=== PATIENT | male | born 1960 | race Two or more races ===

== ENCOUNTER 2017-07-21 09:16 | Day surgery (SDC) | payer OTHER ==
[2017-07-21] MEDS ORDERED: LACTATED RINGERS 1,000 ML IV ONE ×2 (09:57→11:10)
[2017-07-21] MEDS ORDERED: fentaNYL 100 MCG/2 ML VIAL IVP ONE (10:42)
[2017-07-21] MEDS ORDERED: MIDAZOLAM 2 MG/2 ML VIAL IVP ONE (10:42)
--- NOTE | 2017-07-21 11:27 | PROCEDURE REPORT ---
DATE OF SERVICE: 07/21/2017 Physician: Ray Minor MD PROCEDURE PERFORMED: Colonoscopy. ENDOSCOPIST: Ray Minor MD PRIMARY CARE: [facility]. INDICATION: Screening. PREMEDICATIONS 1. Fentanyl 150 mcg. 2. Versed 4 mg IV titration. TOTAL SEDATION TIME: Twenty minutes. After informed consent was obtained, the patient was placed in left lateral decubitus position. Video colonoscope was introduced into the rectum, slowly advanced to the cecum. On slow withdrawal, mucosa was carefully examined. Scope was removed. The patient tolerated the procedure well. Preparation was good. BLOOD LOSS: None. COMPLICATIONS: None. FINDINGS 1. Normal colonoscopy to cecum. 2. Moderate internal hemorrhoids. The patient will need followup colonoscopy in 10 years. cc: [facility], TD: 07/21/2017 11:26
[2017-07-21 11:45] VITALS: BP 128/62
== END 2017-07-21 09:17 | disposition home or self-care (01) ==
LOC: SDS 09:16
PROVIDERS: ATTEND Internal Medicine Gastroenterology
PROC: 0DJD8ZZ Inspection of Lower Intestinal Tract, Via Natural or Artificial Opening Endoscopic (ICD-10-PCS; principal; 2017-07-21 10:30)
DX: Z12.11 Encounter for screening for malignant neoplasm of colon (principal); K64.8 Other hemorrhoids
CPT/HCPCS: 45378; J7120

== ENCOUNTER 2018-10-07 23:46 | Emergency (ER) | payer OTHER ==
--- NOTE | 2018-10-07 23:53 | ED Physician Documentation ---
PD HPI ABD PAIN - Stated complaint Stated Complaint: ABD PX - Chief complaint Chief Complaint: Abd Pain - History obtained from History obtained from: Patient - History of Present Illness Timing - onset: How many days ago (8) Timing - details: Abrupt onset, Intermittant Pain level now: 4 Quality: Pain Location: RUQ Radiation: Right flank Improved by: Other (no ameliorating factors) Worsened by: Eating Associated symptoms: No: Fever, Nausea, Vomiting, Diarrhea, Constipation Recently seen: Clinic (evaluated by PMD 3 days ago, advised to take zantac) Review of Systems Constitutional: denies: Fever, Chills, Sweats Cardiac: reports: Reviewed and negative Respiratory: reports: Reviewed and negative GI: reports: Abdominal Pain. denies: Nausea, Vomiting, Constipation, Diarrhea : denies: Dysuria, Frequency Skin: denies: Rash Musculoskeletal: reports: Reviewed and negative PD PAST MEDICAL HISTORY - Past Medical History Cardiovascular: None Respiratory: Sleep apnea, CPAP use Endocrine/Autoimmune: None GI: GERD, Hemorrhoids : None HEENT: Chronic vision loss, Chronic sinusitis Psych: Depression, Anxiety Musculoskeletal: None Derm: None - Past Surgical History General: Cholecystectomy, Colonoscopy, EGD - Present Medications Home Medications: Ambulatory Orders Medication Instructions Recorded Confirmed Gabapentin [Neurontin] 600 mg PO DAILY 07/21/17 10/08/18 hydrOXYzine HCl [Hydroxyzine HCl] 10 mg PO DAILY 07/21/17 10/08/18 Dextroamphetamine/Amphetamine 30 mg PO DAILY 10/08/18 10/08/18 [Adderall Xr 30 mg Capsule] - Allergies Allergies/Adverse Reactions: Allergies Allergy/AdvReac Type Severity Reaction Status Date / Time bupropion [From Wellbutrin] Allergy Anxiety Verified 10/08/18 00:12 Penicillins Allergy Rash Verified 10/07/18 23:53 PD ED PE NORMAL - Vitals Vital signs reviewed: Yes - General General: Alert and oriented X 3, No acute distress, Well developed/nourished - Cardiac Cardiac: RRR, No murmur - Respiratory Respiratory: No respiratory distress, Clear bilaterally - Abdomen Abdomen: Normal bowel sounds, Soft, Non tender, Non distended - Back Back: No CVA TTP - Derm Derm: Normal color, Warm and dry, No rash Results - Vitals Vitals: Vital Signs - 24 hr 10/07/18 10/08/18 10/08/18 23:49 01:47 02:45 Temperature 36.5 C 36.0 C L Heart Rate 74 64 70 Respiratory 16 15 15 Rate Blood Pressure 115/73 108/79 113/86 H O2 Saturation 98 100 100 Oxygen O2 Source Room air - Labs Labs: Laboratory Tests 10/08/18 10/08/18 10/08/18 00:03 00:17 00:17 WBC 7.9 RBC 4.36 L Hgb 13.0 L Hct 37.5 L MCV 86.0 MCH 29.9 MCHC 34.7 RDW 13.2 Plt Count 264 MPV 7.7 Neut # (Auto) 5.3 Lymph # (Auto) 1.9 [place] # (Auto) 0.5 Eos # (Auto) 0.1 Baso # (Auto) 0.1 Absolute Nucleated RBC 0.00 Nucleated RBC % 0.1 Sodium 138 Potassium 3.5 Chloride 106 Carbon Dioxide 25 Anion Gap 7.0 BUN 15 Creatinine 1.0 Estimated GFR (MDRD) 77 L Glucose 106 H Calcium 8.5 Total Bilirubin 0.5 AST 28 ALT 20 Alkaline Phosphatase 49 Total Protein 7.2 Albumin 3.9 Globulin 3.3 Albumin/Globulin Ratio 1.2 Lipase 52 H Urine Color YELLOW Urine Clarity CLEAR Urine pH 7.5 Ur Specific [place] 1.010 Urine Protein NEGATIVE Urine Glucose (UA) NEGATIVE Urine Ketones NEGATIVE Urine Occult Blood NEGATIVE Urine Nitrite NEGATIVE Urine Bilirubin NEGATIVE Urine Urobilinogen 0.2 (NORMAL) Ur Leukocyte Esterase NEGATIVE Ur Microscopic Review NOT INDICATED Urine Culture Comments NOT INDICATED - Rads (name of study) CT A/P Radiology: Prelim report reviewed, See rad report PD MEDICAL DECISION MAKING - ED course Complexity details: reviewed results, re-evaluated patient, considered differential, d/w patient Departure - Departure Disposition: 01 Home, Self Care Clinical Impression: Abdominal pain Condition: Good Instructions: ED Abdominal Pain Unkn Cause Follow-Up: STEPHANIE MILLAN MD [Primary Care Provider] - (Call to arrange for next available appointment) Discharge Date/Time: 10/08/18 02:50
[2018-10-08 00:13] LABS: BILIRUBIN,URINE NEGATIVE (NEGATIVE); GLUCOSE, URINE (UA) NEGATIVE (NEGATIVE); KETONES,URINE (UA) NEGATIVE (NEGATIVE); LEUKOCYTE ESTERASE, URINE NEGATIVE (NEGATIVE); NITRITE,URINE NEGATIVE (NEGATIVE); OCCULT BLOOD,URINE NEGATIVE (NEGATIVE); PH,URINE 7.5 PH (5.0-7.5); PROTEIN,URINE NEGATIVE (NEGATIVE); UROBILINOGEN,URINE 0.2 (NORMAL) E.U./dL (NORMAL)
[2018-10-08 00:14] LABS: CLARITY,URINE CLEAR (CLEAR)
[2018-10-08 00:36] LABS: BASOPHILS # (AUTO) 0.1 10^3/uL (0.0-0.1); BASOPHILS % (AUTO) 0.9 %; EOSINOPHILS # (AUTO) 0.1 10^3/uL (0.0-0.7); EOSINOPHILS % (AUTO) 1.7 %; LYMPHOCYTES # (AUTO) 1.9 10^3/uL (1.5-3.5); MEAN CORPUSCULAR HEMOGLOBIN 29.9 pg (27.0-31.0); MEAN CORPUSCULAR HGB CONC 34.7 g/dL (32.0-36.0); MEAN PLATELET VOLUME 7.7 fL (7.4-11.4); MONOCYTES # (AUTO) 0.5 10^3/uL (0.0-1.0); MONOCYTES % (AUTO) 6.3 %; NEUTROPHILS # (AUTO) 5.3 10^3/uL (1.5-6.6); NEUTROPHILS % (AUTO) 67.1 %; PLT - PLATELET COUNT 264 10^3/uL (130-450); RED BLOOD COUNT 4.36 10^6/uL (4.70-6.10); RED CELL DISTRIBUTION WIDTH 13.2 % (12.0-15.0); WHITE BLOOD COUNT 7.9 x10^3/uL (4.8-10.8)
[2018-10-08 00:46] LABS: ALBUMIN 3.9 g/dL (3.2-5.5); ALBUMIN/GLOBULIN RATIO 1.2 (1.0-2.2); BILIRUBIN,TOTAL 0.5 mg/dL (0.2-1.0); CALCIUM 8.5 mg/dL (8.5-10.3); TOTAL PROTEIN 7.2 g/dL (6.7-8.2)
[2018-10-08] MEDS ORDERED: IOVERSOL 320 100 ML VIAL IVP ONE ×2 (00:53→01:20)
--- NOTE | 2018-10-08 01:28 | CT Report ---
Reason: right abd. pain Procedure Date: 10/08/2018 Accession Number: [id number] / [id number] Procedure: CT - Abdomen/Pelvis W CPT Code: FULL RESULT: EXAM: CT ABDOMEN AND PELVIS EXAM DATE: 10/08/2018 01:18 AM. CLINICAL HISTORY: Right abd. pain. COMPARISONS: None. TECHNIQUE: Routine helical CT imaging was performed through the abdomen and pelvis. IV contrast: 100 ML OPTIRAY 320. Enteric contrast: No. Reconstructions: Coronal and sagittal. In accordance with CT protocol optimization, one or more of the following dose reduction techniques were utilized for this exam: automated exposure control, adjustment of mA and/or KV based on patient size, or use of iterative reconstructive technique. FINDINGS: Lung Bases: Unremarkable. Liver: Normal. No masses. Gallbladder/Bile Ducts: Resected Spleen: Normal. Pancreas: Normal. Adrenal Glands: Normal. Kidneys: Normal. No masses or hydronephrosis. Peritoneal Cavity/Bowel: Normal. No free fluid, free air or adenopathy. No masses or acute inflammatory process. The appendix is well visualized and normal. The cecum is on its own mesentery. There is a moderate amount of stool within the colon. There are no inflammatory changes. Pelvic Organs: Normal. The bladder and visualized pelvic organs are within normal limits. Vasculature: No aneurysms or other significant abnormality. Bones: No significant abnormality. Other: None. IMPRESSION: 1. Prior cholecystectomy. 2. Normal-appearing appendix. 3. Moderate amount of stool throughout the colon. No inflammatory changes. RADIA
[2018-10-08] MEDS ORDERED: KETOROLAC 30 MG/ML VIAL IVP STA (02:20)
[2018-10-08 02:54] VITALS: BP 113/86
== END 2018-10-08 02:50 | disposition home or self-care (01) ==
LOC: ED 23:46
DX: R10.11 Right upper quadrant pain (principal); K21.9 Gastro-esophageal reflux disease without esophagitis
CPT/HCPCS: 36415; 74177; 80053; 81003; 83690; 85025; 96374; 99283; 99284; Q9967; 81001; 87086

== ENCOUNTER 2022-06-29 10:21 | Emergency (ER) | payer OTHER ==
[2022-06-29 10:56] LABS: MUDS CUTOFF CONCENTRATIONS CUTOFF CONC BELOW:
[2022-06-29 11:02] LABS: BILIRUBIN,URINE NEGATIVE (NEGATIVE); GLUCOSE, URINE (UA) NEGATIVE (NEGATIVE); KETONES,URINE (UA) NEGATIVE (NEGATIVE); LEUKOCYTE ESTERASE, URINE NEGATIVE (NEGATIVE); NITRITE,URINE NEGATIVE (NEGATIVE); OCCULT BLOOD,URINE NEGATIVE (NEGATIVE); PH,URINE 6.5 PH (5.0-7.5); PROTEIN,URINE NEGATIVE (NEGATIVE); UROBILINOGEN,URINE 0.2 (NORMAL) E.U./dL (NORMAL)
[2022-06-29 11:04] LABS: CLARITY,URINE CLEAR (CLEAR)
[2022-06-29 11:07] LABS: BASOPHILS # (AUTO) 0.1 10^3/uL (0.0-0.1); BASOPHILS % (AUTO) 1.1 %; EOSINOPHILS % (AUTO) 0.7 %; HCT - HEMATOCRIT 39.5 % (42.0-52.0); HGB - HEMOGLOBIN 13.4 g/dL (14.0-18.0); LYMPHOCYTES # (AUTO) 0.9 10^3/uL (1.5-3.5); LYMPHOCYTES % (AUTO) 19.6 %; MEAN CORPUSCULAR HEMOGLOBIN 29.9 pg (27.0-31.0); MEAN CORPUSCULAR HGB CONC 33.9 g/dL (32.0-36.0); MEAN CORPUSCULAR VOLUME 88.2 fL (80.0-94.0); MEAN PLATELET VOLUME 9.4 fL (7.4-11.4); MONOCYTES # (AUTO) 0.2 10^3/uL (0.0-1.0); MONOCYTES % (AUTO) 4.9 %; NEUTROPHILS # (AUTO) 3.3 10^3/uL (1.5-6.6); NEUTROPHILS % (AUTO) 73.5 %; PLT - PLATELET COUNT 264 10^3/uL (130-450); RED BLOOD COUNT 4.48 10^6/uL (4.70-6.10); RED CELL DISTRIBUTION WIDTH 13.4 % (12.0-15.0); WHITE BLOOD COUNT 4.5 x10^3/uL (4.8-10.8)
[2022-06-29 11:14] LABS: AMPHETAMINE SCREEN,URINE POSITIVE (NEGATIVE); BARBITURATE SCREEN,UR NEGATIVE (NEGATIVE); BENZODIAZEPINES SCREEN, URINE NEGATIVE (NEGATIVE); COCAINE SCREEN URINE NEGATIVE (NEGATIVE); METHADONE SCREEN, URINE NEGATIVE (NEGATIVE); METHAMPHETAMINES SCREEN, URINE NEGATIVE (NEGATIVE); OPIATE SCREEN, URINE NEGATIVE (NEGATIVE); OXYCODONE SCREEN, URINE NEGATIVE (NEGATIVE); PROPOXYPHENE SCREEN, URINE NEGATIVE (NEGATIVE); THC CANNABINOID SCREEN, URINE NEGATIVE (NEGATIVE); TRICYCLIC ANTIDEPRESSANT,URINE NEGATIVE (NEGATIVE)
--- NOTE | 2022-06-29 11:16 | ED Physician Documentation ---
PD HPI MHE - Stated complaint Stated Complaint: SI - Chief complaint Chief Complaint: MHE - History obtained from History obtained from: Patient - History of Present Illness Primary symptom: Suicidal ideation, Depression. No: Suicide attempt Timing - onset: How many weeks ago (The patient states he does have history of depression and has been feeling this worse the last week or 2. No particular [place] new precipitants. He has been having suicidal ideation and this has been more in the forefront last 4- 5 days.) Contributing factors: No: Substance abuse - ETOH, Substance abuse - drugs, Off meds Similar symptoms before: Diagnosis (He does have history of depression and has been on antidepressant medications and does receive counseling. He has not been hospitalized previously. No prior suicide attempts.) Recently seen: Clinic (He did speak with his counselor and primary care last week. They suggested coming to the ER if needed if he felt worse. He was feeling worse today in particular. He had felt somewhat worse over the weekend but states he had to get his daughters to various places and had to do driving for them.) Review of Systems Constitutional: denies: Fever Nose: denies: Rhinorrhea / runny nose, Congestion Throat: denies: Sore throat Cardiac: denies: Chest pain / pressure Respiratory: denies: Dyspnea, Cough GI: denies: Abdominal Pain, Nausea, Vomiting, Diarrhea Neurologic: denies: Generalized weakness Psychiatric: reports: Depressed, Suicidal (ideation with plan of cutting wrists, but no attempts nor progression toward it.) Immunocompromised: denies: Immunocompromised PD PAST MEDICAL HISTORY - Past Medical History Cardiovascular: None Respiratory: Sleep apnea, CPAP use Neuro: Other Endocrine/Autoimmune: None GI: GERD, Hemorrhoids : None HEENT: Chronic vision loss, Chronic sinusitis Psych: Depression, Anxiety Musculoskeletal: None Derm: None - Past Surgical History Past Surgical History: Yes General: Cholecystectomy, Colonoscopy, EGD - Present Medications Home Medications: Ambulatory Orders Medication Instructions Recorded Confirmed Gabapentin [Neurontin] 600 mg PO DAILY 07/21/17 10/08/18 hydrOXYzine HCL [Hydroxyzine HCl] 10 mg PO DAILY 07/21/17 10/08/18 Dextroamphetamine/Amphetamine 30 mg PO DAILY 10/08/18 10/08/18 [Adderall Xr 30 mg Capsule] - Allergies Allergies/Adverse Reactions: Allergies Allergy/AdvReac Type Severity Reaction Status Date / Time bupropion [From Wellbutrin] Allergy Anxiety Verified 06/29/22 10:36 Penicillins Allergy Rash Verified 06/29/22 10:36 - Social History Does the pt smoke?: No Smoking Status: Never smoker Does the pt drink ETOH?: Yes Does the pt have substance abuse?: No - Immunizations Immunizations are current?: Yes - POLST Patient has POLST: No PD ED PE NORMAL - Vitals Vital signs reviewed: Yes - General General: Alert and oriented X 3, No acute distress, Well developed/nourished - Cardiac Cardiac: RRR, No murmur - Respiratory Respiratory: Clear bilaterally - Abdomen Abdomen: Non tender - Derm Derm: Normal color, Warm and dry - Neuro Neuro: Alert and oriented X 3, No motor deficit, Normal speech Eye Opening: Spontaneous Motor: Obeys Commands Verbal: Oriented GCS Score: 15 - Psych Psych: No: Normal affect (somewhat flat but pleasant and cooperative. ) Results - Vitals Vitals: Vital Signs - 24 hr 06/29/22 10:28 Temperature 36.4 C L Heart Rate 95 Respiratory 20 Rate Blood Pressure 144/95 H O2 Saturation 96 Oxygen O2 Source Room air - EKG (time done) 12:07 Rate: Rate (enter#) (84) Rhythm: NSR [place]: Normal Intervals: Normal MT QRS: Normal Ischemia: Normal ST segments. No: ST elevation c/w ischemia, ST depression Compare to prior EKG: Old EKG unavailable Computer interpretation: Agree with computer - Labs Labs: Laboratory Tests 06/29/22 06/29/22 06/29/22 10:48 11:00 11:00 WBC 4.5 L RBC 4.48 L Hgb 13.4 L Hct 39.5 L MCV 88.2 MCH 29.9 MCHC 33.9 RDW 13.4 Plt Count 264 MPV 9.4 Neut # (Auto) 3.3 Lymph # (Auto) 0.9 L [place] # (Auto) 0.2 Eos # (Auto) 0.0 Baso # (Auto) 0.1 Absolute Nucleated RBC 0.00 Nucleated RBC % 0.0 Sodium 138 Potassium 3.9 Chloride 103 Carbon Dioxide 25 Anion Gap 10.0 BUN 11 Creatinine 0.9 Estimated GFR (MDRD) 86 L Glucose 117 H Calcium 8.7 Total Bilirubin 0.4 AST 26 ALT 24 Alkaline Phosphatase 44 Total Protein 7.4 Albumin 4.2 Globulin 3.2 Albumin/Globulin Ratio 1.3 Lipase 40 TSH Urine Color LIGHT YELLOW Urine Clarity CLEAR Urine pH 6.5 Ur Specific [place] <=1.005 Urine Protein NEGATIVE Urine Glucose (UA) NEGATIVE Urine Ketones NEGATIVE Urine Occult Blood NEGATIVE Urine Nitrite NEGATIVE Urine Bilirubin NEGATIVE Urine Urobilinogen 0.2 (NORMAL) Ur Leukocyte Esterase NEGATIVE Ur Microscopic Review NOT INDICATED Urine Culture Comments NOT INDICATED Salicylates < 6.0 Urine Opiates Screen NEGATIVE Ur Oxycodone Screen NEGATIVE Urine Methadone Screen NEGATIVE Ur Propoxyphene Screen NEGATIVE Acetaminophen < 10 L Ur Barbiturates Screen NEGATIVE Ur Tricyclics Screen NEGATIVE Ur Phencyclidine Scrn NEGATIVE Ur Amphetamine Screen POSITIVE H U Methamphetamines Scrn NEGATIVE U Benzodiazepines Scrn NEGATIVE Urine Cocaine Screen NEGATIVE U Cannabinoids Screen NEGATIVE Ethyl Alcohol < 5.0 SARS-CoV-2 (PCR) 06/29/22 06/29/22 11:00 14:12 WBC RBC Hgb Hct MCV MCH MCHC RDW Plt Count MPV Neut # (Auto) Lymph # (Auto) [place] # (Auto) Eos # (Auto) Baso # (Auto) Absolute Nucleated RBC Nucleated RBC % Sodium Potassium Chloride Carbon Dioxide Anion Gap BUN Creatinine Estimated GFR (MDRD) Glucose Calcium Total Bilirubin AST ALT Alkaline Phosphatase Total Protein Albumin Globulin Albumin/Globulin Ratio Lipase TSH 1.63 Urine Color Urine Clarity Urine pH Ur Specific [place] Urine Protein Urine Glucose (UA) Urine Ketones Urine Occult Blood Urine Nitrite Urine Bilirubin Urine Urobilinogen Ur Leukocyte Esterase Ur Microscopic Review Urine Culture Comments Salicylates Urine Opiates Screen Ur Oxycodone Screen Urine Methadone Screen Ur Propoxyphene Screen Acetaminophen Ur Barbiturates Screen Ur Tricyclics Screen Ur Phencyclidine Scrn Ur Amphetamine Screen U Methamphetamines Scrn U Benzodiazepines Scrn Urine Cocaine Screen U Cannabinoids Screen Ethyl Alcohol SARS-CoV-2 (PCR) NOT DETECTED PD Medical Decision Making - ED course Complexity details: reviewed results (He does appear medically cleared.), considered differential (The patient does have history of depression which has increased in the last couple of weeks. He is having increasing suicidal ideation. He has thoughts of cutting his wrist but has not made any attempts or forward progression. He is seeking help. Has positive thoughts with his family/daughters), d/w patient Social Determinants of Health: He does seem at risk for self-harm. He is seeking help because of increasing suicidal ideation. He had talked with his counselor last week and hospitalization was suggested. Social work will talk with him here and they do feel that that is appropriate. Patient is unlisted. [facility] apparently is full. Social work is looking at other facilities. Will be a slight limitation in that he does use CPAP normally for sleep and not all facilities are comfortable taking that. The search is ongoing.
[2022-06-29 11:34] LABS: ACETAMINOPHEN < 10 ug/mL (10-30); ALBUMIN 4.2 g/dL (3.2-5.5); ALBUMIN/GLOBULIN RATIO 1.3 (1.0-2.2); ALKALINE PHOSPHATASE 44 IU/L (42-121); ALT ALANINE AMINOTRANSFERASE 24 IU/L (10-60); AST ASPARTATE AMINOTRANSFERASE 26 IU/L (10-42); BILIRUBIN,TOTAL 0.4 mg/dL (0.2-1.0); BUN - BLOOD UREA NITROGEN 11 mg/dL (6-20); CALCIUM 8.7 mg/dL (8.5-10.3); CARBON DIOXIDE - CO2 25 mmol/L (21-32); CHLORIDE 103 mmol/L (101-111); CREATININE 0.9 mg/dL (0.6-1.2); ETOH - ETHANOL < 5.0 mg/dL; GFR - MDRD 86 (>89); GLUCOSE 117 mg/dL (70-100); LIPASE 40 U/L (22-51); POTASSIUM 3.9 mmol/L (3.5-5.0); SALICYLATE < 6.0 mg/dL; SODIUM 138 mmol/L (135-145); TOTAL PROTEIN 7.4 g/dL (6.7-8.2)
--- NOTE | 2022-06-29 16:35 | ED Physician Documentation ---
ED Addendum - Addendum Addendum: 06/29/22 16:[address] Damon at 3 PM shift change. Social work has been working with him and he has been accepted to [facility] for psychiatric care. [place]ras are completed and he is transferred in stable condition. Diagnosis 1. Depression with suicidal ideation
[2022-06-29 18:55] VITALS: BP 148/88
== END 2022-06-29 19:33 ==
LOC: EDBD → EDUNIT# → ED 10:21
DX: R45.851 Suicidal ideations (principal); F32.A Depression, unspecified; Z20.822 Contact with and (suspected) exposure to COVID-19
CPT/HCPCS: 36415; 80053; 80306; 80307; 80320; 80329; 81001; 81003; 83690; 84443; 85025; 87086; 93005; 99284; 99285

== ENCOUNTER 2023-10-12 07:24 | Outpatient (CLI) | payer OTHER ==
--- NOTE | 2023-10-12 11:31 | MRI Report ---
PROCEDURE: Brain WO INDICATIONS: TREMOR TECHNIQUE: Noncontrast axial T1 spin echo, axial T2 fast spin echo, sagittal and axial FLAIR, coronal T2 fast sp in echo, axial gradient echo, axial diffusion and ADC through the brain. COMPARISON: None. FINDINGS: Image quality: Excellent. CSF Spaces: Basal cisterns are patent. No extra-axial fluid collections. Ventricles are normal in size and shape. Brain: No intracranial masses or hemorrhage. Mild diffuse cerebral volume loss. Minimal degree of p atchy high FLAIR signal within the periventricular and subcortical white matter. [place]/white matter in terface is normal. Brainstem appears normal. Diffusion-weighted images demonstrate no acute ischemi c insult. No chronic ischemic insults. Normal intravascular flow voids are present. Skull and face: Calvarium has normal marrow signal. Orbits appear normal. Sinuses: Mild right maxillary sinus because of thickening. Left mastoid sinus retention cyst. Mild b ilateral ethmoid sinus mucosal thickening. Sinuses and mastoids are otherwise clear. IMPRESSION: 1. Mild volume loss and minimal small vessel ischemic disease. 2. No acute process. No recent infarct. Reviewed by: Tim Starks MD on 10/12/2023 11:30 AM PDT Approved by: Tim Starks MD on 10/12/2023 11:30 AM PDT Station ID: [id number]
== END 2023-10-12 07:25 | disposition home or self-care (01) ==
LOC: DI 07:24
PROVIDERS: ATTEND Psychiatry & Neurology Psychiatry
DX: I67.82 Cerebral ischemia (principal); R46.89 Other symptoms and signs involving appearance and behavior; R35.1 Nocturia; R45.87 Impulsiveness